=== PATIENT | female | born 1995 | race Caucasian/White ===

== ENCOUNTER 2022-01-22 12:06 | Emergency (ER) | payer BC ==
[2022-01-22] MEDS ORDERED: HYDROcodone/Acetaminophen 5/325 mg Tablet ONE (13:52)
[2022-01-22] MEDS ORDERED: Ibuprofen 200 MG TAB ONE (13:56)
== END 2022-01-22 14:07 | disposition home or self-care (01) ==
LOC: ERS 12:06
DX: S90.31XA Contusion of right foot, initial encounter (principal); W55.19XA Other contact with horse, initial encounter